=== PATIENT | female | born 1975 | race Caucasian/White ===

== ENCOUNTER → 2018-01-07 | Day surgery (SDC) | payer BC ==
--- NOTE | 2018-01-07 19:44 | OP ---
DATE OF OPERATION: 01/07/2018 PREOPERATIVE DIAGNOSIS: Suspicious right upper outer quadrant breast mass, 10 to 11 o'clock, 4 cm from the nipple, and suspicious right axillary node. POSTOPERATIVE DIAGNOSIS: Suspicious right upper outer quadrant breast mass, 10 to 11 o'clock, 4 cm from the nipple, and suspicious right axillary node. PROCEDURE: Right axillary node ultrasound guided core biopsy with clip placement and right breast ultrasound guided core biopsy with clip placement. ANESTHESIA: Local. ATTENDING SURGEON: Dayo Sanchez M.D. ESTIMATED BLOOD LOSS: Minimal. COMPLICATIONS: None. DESCRIPTION OF PROCEDURE: Patient was made aware of risks and benefits of the procedure and consented. The right axillary node was approached first. Under sterile conditions, with 1% lidocaine for local anesthesia, a small sapna was made in the skin. Using a 13-gauge suction biopsy device, the inferior approach under ultrasound guidance, 2 cores were obtained and submitted to pathology. Likewise under ultrasound guidance, a Hydromark clip was placed into the biopsied lymph node. Steri-Strip and a sterile bandage were applied. The right breast was then approached with new sterile setup and a core system. Under sterile conditions, with 1% lidocaine for local anesthesia, a small sapna was made in the skin. Using a 13-gauge suction biopsy device, via lateral approach under ultrasound guidance, multiple cores were obtained and submitted to pathology. Likewise under ultrasound guidance, a U-shaped clip was placed into the biopsy region Steri-Strip, sterile dressing, and manual compression were then applied. Patient tolerated the procedure well. Will contact her with results. DAYO SANCHEZ M.D. [id number]
--- NOTE | 2018-01-12 14:07 | PATH ---
Surgical Pathology Report Patient Name: MARTINEZ CONNELL [facility]. Rec. #: [id number] /Age/Gender: 1975 (Age: 42) / F Account: [id number] Location: [facility] RADIOLOG[facility] U Taken: 01/07/2018 Received: 01/07/2018 Reported: 01/12/2018 Physicians: Dayo Sanchez M.D. Specimen(s) Received A: RIGHT AXILLARY NODE CORE BX B: RIGHT BREAST 10-11:00 4 CM FN CORE BIOPSY Clinical History Palpable mass Ultrasound findings: Highly suspicious/malignant Final Diagnosis A. lymph node, right axilla, core biopsy: Scant benign lymph node tissue. (See note) Note: Cytokeratin (AE1/3) immunostain performed at [place], [place] ([id number]) is negative; this finding supports the diagnosis. B. breast, right, 10-11:00 N-4, core biopsy: INVASIVE Ductal carcinoma, poorly differentiated (with squamoid features), measuring at least 1.0 cm in greatest dimension in this material. (See note) Ductal carcinoma in situ (DCIS), predominantly necrotic with associated calcifications (" burnt-out" DCIS with rare intact high-grade nuclei). Note: Immunohistochemical studies performed at [place], [place] ([id number]) show the following results: The carcinoma is positive for CK-HMW with rare cells positive for p40. These findings support the diagnosis. See also concurrent right nipple biopsy ([id number]). Case discussed with on 01/12/18. Results of ER, DE, Her2 & Ki67 studies performed on block B at [place], [place] ([id number]) are as follows: ER (clone [id number] mouse monoclonal antibody by [employer]): 0 % nuclear staining (Negative). DE (clone16 mouse monoclonal antibody by [employer]): 0 % nuclear staining (Negative). Her2 IHC (EP3 from [employer], formerly known as [id number], using [employer] Polymer Refine detection kit): 3+ (Positive). Ki-67: 30-40% (High proliferative index). Positive and negative controls (internal if applicable) show appropriate results. Formalin fixation and cold ischemic times are within current ASCO/CAP recommendations for ER, DE and Her2 testing. Electronically Signed Cathi Zavala M.D. Gross Description A. Received in formalin labeled "right axilla," is a 2.4 x 2.3 x 0.3 cm aggregate of multiple washburn-yellow, irregular to cylindrical portions of fibroadipose tissue admixed with blood clot. The formalin is filtered and the specimen is entirely submitted in one cassette. B. Received in formalin labeled "right breast 10-11:00, 4 cm fn," are 8 washburn-yellow, cylindrical portions of fibroadipose tissue ranging from 0.3-1.6 cm in length and averaging 0.1 cm in diameter. The specimens are submitted in toto in one cassette. Time to formalin fixation: < 1 minute Total formalin fixation time: Approximately 25 hours. 01/08/2018 [facility]01/08/2018
== END | disposition home or self-care (01) ==
LOC: FRADUS-SUR 16:45
PROVIDERS: ATTEND Surgery Surgical Oncology
PROC: 0HBT3ZX Excision of Right Breast, Percutaneous Approach, Diagnostic (ICD-10-PCS; principal; 2018-01-07)
PROC: 07B53ZX Excision of Right Axillary Lymphatic, Percutaneous Approach, Diagnostic (ICD-10-PCS; 2018-01-07)
PROC: BH47ZZZ Ultrasonography of Upper Extremity (ICD-10-PCS; 2018-01-07)
DX: C50.411 Malignant neoplasm of upper-outer quadrant of right female breast (principal); N63.11 Unspecified lump in the right breast, upper outer quadrant; R59.9 Enlarged lymph nodes, unspecified
CPT/HCPCS: 19083; 19084; 38505; 76942; 87899; 88305-TC; A4648

== ENCOUNTER 2018-04-19 15:53 | Emergency (ER) | payer BC ==
[2018-04-19 16:20] VITALS: BP 120/75; TEMP 98.5; BMI 17.2
[2018-04-19] MEDS ORDERED: ONDANSETRON 4 MG/2 ML VIAL ONE (16:46)
[2018-04-19] MEDS ORDERED: HYDROmorphone HCL CARPU-JECT 1 MG/1 ML DISP.SYRIN ONE (16:46)
[2018-04-19] MEDS ORDERED: ONDANSETRON 4 MG/2 ML VIAL IVPUSH ONE (16:47)
[2018-04-19] MEDS ORDERED: SODIUM CHLORIDE 0.9% 1000 ML INFUS.BAG IV ONE (16:47)
[2018-04-19] MEDS ORDERED: HYDROmorphone HCL CARPU-JECT 1 MG/1 ML DISP.SYRIN IVPB ONE (16:48)
[2018-04-19 16:52] LABS: HCG,QUALITATIVE URINE Negative
[2018-04-19 16:56] LABS: PH,URINE 5.5 (4.5-8); URINE APPEARANCE Clear; URINE BILIRUBIN 1+ (NEGATIVE); URINE COLOR Yellow; URINE GLUCOSE (UA) Trace (NEGATIVE); URINE KETONE Trace (NEGATIVE); URINE LEUK ESTERASE Negative (NEGATIVE); URINE NITRITE Negative (NEGATIVE); URINE UROBILINOGEN 0.2 (0.2-1.0)
[2018-04-19 16:57] LABS: URINE PROTEIN 1+ (NEGATIVE)
[2018-04-19 17:04] LABS: HEMATOCRIT 30.7 % (32.4-45.2); HEMOGLOBIN 10.2 GM/dl (10.7-15.3); WHITE BLOOD COUNT 7.3 K/mm3 (4.0-10.8)
[2018-04-19 17:08] LABS: BASO % 0.5 % (0-2.0); LYMPH % 26.9 % (8-40); MCH 30.9 pg (25.7-33.7); MCHC 33.2 g/dl (32.0-36.0); MEAN CELL VOLUME 93.1 fl (80-96); MONO % 6.2 % (3.8-10.2); NEUT % 66.4 % (42.8-82.8); PLATELET COUNT 153 K/MM3 (134-434); RDW 16.8 % (11.6-15.6)
[2018-04-19 17:09] LABS: ALBUMIN 4.3 g/dl (3.5-5.0); ALK PHOS 92 U/L (32-92); ANION GAP 9 (8-16); BILIRUBIN,TOTAL 0.6 mg/dl (0.2-1.0); BLOOD UREA NITROGEN 12 mg/dl (7-18); CALCIUM 9.2 mg/dl (8.4-10.2); CHLORIDE 106 mmol/L (98-107); CO2 23 mmol/L (22-28); CREATININE 0.9 mg/dl (0.6-1.3); GLUCOSE,RANDOM 114 mg/dl (74-106); POTASSIUM 3.6 mmol/L (3.5-5.1); SGOT/AST 19 U/L (10-42); SGPT/ALT 16 U/L (10-40); SODIUM 138 mmol/L (136-145); TOT PROT 7.2 g/dl (6.4-8.3)
--- NOTE | 2018-04-19 17:10 | PDOC ---
History of Present Illness - General Chief Complaint: Diarrhea Stated Complaint: DIARRHEA, NAUSEA, JOINT PAINS History Source: Patient Exam Limitations: No Limitations - History of Present Illness Initial Comments: 04/19/18 17:07 42 all female history of breast cancer currently undergoing chemotherapy last session was 10 days ago here today for 3 days of nausea vomiting and diarrhea. Patient states she threw up 2 times however has had 10 loose watery nonbloody stools. Complaining of generalized myalgia and body aches. Symptoms are similar to what she usually experiences in the few days immediately following chemotherapy. However she has not had chemotherapy on the last week denies any fevers or chills no chest pain or shortness of breath no abdominal pain no other complaints she follows with oncologist Dr. Nancy Montoya Past History - Past Medical History Allergies/Adverse Reactions: Allergies Allergy/AdvReac Type Severity Reaction Status Date / Time levofloxacin [From Levaquin] Allergy Verified 04/19/18 15:56 Home Medications: Ambulatory Orders Carboplatin mg IV ASDIR 04/19/18 Ondansetron [Ondansetron Odt] 8 mg PO ASDIR PRN 04/19/18 Paclitaxel [Taxol] mg IV ASDIR 04/19/18 Pegfilgrastim [Neulasta] 6 mg SQ ASDIR 04/19/18 Pertuzumab [Perjeta] mg IV ASDIR 04/19/18 Trastuzumab [Herceptin -] mg IV ASDIR 04/19/18 Cancer: Yes (BREAST ON CHEMO) COPD: No - Suicide/Smoking/Psychosocial Hx Smoking History: Current some day smoker Have you smoked in the past 12 months: Yes Number of Cigarettes Smoked Daily: 1 Information on smoking cessation initiated: Yes 'Breaking Loose' booklet given: 04/19/18 Hx Alcohol Use: No Review of Systems - Review of Systems Constitutional: No: Diaphoresis, Fever HEENTM: No: Blurred Vision Respiratory: No: Cough, Orthopnea, Shortness of Breath Cardiac (ROS): No: Chest Pain ABD/GI: Yes: Diarrhea, Nausea, Vomiting : No: Burning, Dysuria Neurological: Yes: Weakness. No: Numbness, Paresthesia Hematologic/Lymphatic: Yes: Other All Other Systems: Reviewed and Negative *Physical Exam - Vital Signs Last Vital Signs Temp Pulse Resp BP Pulse Ox 98.5 F 107 H 20 120/75 99 04/19/18 15:53 04/19/18 15:53 04/19/18 15:53 04/19/18 15:53 04/19/18 15:53 - Physical Exam General Appearance: Yes: Appropriately Dressed Respiratory/Chest: positive: Lungs Clear, Normal Breath Sounds Cardiovascular: positive: Regular Rhythm, Regular Rate, S1, S2 Gastrointestinal/Abdominal: positive: Normal Bowel Sounds, Flat, Soft. negative : Tender Musculoskeletal: positive: Normal Inspection. negative: CVA Tenderness, CVA Tenderness (R) Extremity: positive: Normal Capillary Refill, Normal Inspection, Normal Range of Motion Integumentary: positive: Normal Color, Dry, Warm Neurologic: positive: Fully Oriented, Alert, Normal Mood/Affect ED Treatment Course - LABORATORY CBC & Chemistry Diagram: 04/19/18 16:40 04/19/18 16:40 - ADDITIONAL ORDERS Additional order review: Laboratory Results 04/19/18 16:40 Urine Color Yellow Urine Appearance Clear Urine pH 5.5 Ur Specific [place] 1.025 Urine Protein 1+ H Urine Glucose (UA) Trace Urine Ketones Trace Urine Blood Negative Urine Nitrite Negative Urine Bilirubin 1+ H Urine Urobilinogen 0.2 Ur Leukocyte Esterase Negative Urine HCG, Qual Negative - Medications Given in the ED: ED Medications Discontinued Medications Generic Name Dose Route Start Last Admin Trade Name Freq PRN Reason Stop Dose Admin Hydromorphone HCl 1 mg 04/19/18 16:48 04/19/18 16:53 Dilaudid Injection - IVPB 04/19/18 16:49 1 mg ONCE ONE Administration Ondansetron HCl 4 mg 04/19/18 16:47 04/19/18 16:50 Zofran Injection IVPUSH 04/19/18 16:48 4 mg ONCE ONE Administration Sodium Chloride 1,000 ml 04/19/18 16:47 04/19/18 16:52 Normal Saline - IV 04/19/18 16:48 1,000 ml ONCE ONE Administration Medical Decision Making - Medical Decision Making 04/19/18 17:09 History of breast CA undergoing chemotherapy he with nausea vomiting diarrhea and dry mucous membranes concerns for dehydration. Differential includes a left- sided abnormality, dehydration, renal failure, hypomagnesemia pancreatitis patient has a relatively nontender abdominal exam. We will order a CBC CMP and magnesium IV hydration and antiemetics will discuss with patient's is reassess following improved will discharge home pending laboratory evaluation 04/19/18 18:40 Patient feeling improved and tolerating by mouth labs unremarkable. We will updated patient's oncologist Dr. Ruth jimenez at [phone]. Call placed awaiting callback *DC/Admit/Observation/Transfer Diagnosis at time of Disposition: Gastroenteritis - Discharge Dispostion Disposition: HOME Condition at time of disposition: Improved - Referrals - Patient Instructions Printed Discharge Instructions: Coping With the Side Effects of Chemotherapy Additional Instructions: Your labs are normal today. Return for any recurrent vomiting fever chills or any concerns. Follow-up with Dr. Ruth jimenez tomorrow as scheduled - Post Discharge Activity
[2018-04-19 17:59] LABS: LIPASE 280 U/L (73-393)
[2018-04-19 18:18] VITALS: PULSE 91
[2018-04-19 18:48] LABS: URINE BACTERIA FEW /hpf (NEGATIVE); URINE RBC 0-2 /hpf (0-3); URINE WBC 0-1 (0-5)
== END 2018-04-19 18:55 | disposition home or self-care (01) ==
LOC: FER 15:53
PROC: 3E0337Z Introduction of Electrolytic and Water Balance Substance into Peripheral Vein, Percutaneous Approach (ICD-10-PCS; principal; 2018-04-19)
PROC: 3E033NZ Introduction of Analgesics, Hypnotics, Sedatives into Peripheral Vein, Percutaneous Approach (ICD-10-PCS; 2018-04-19)
PROC: 3E033GC Introduction of Other Therapeutic Substance into Peripheral Vein, Percutaneous Approach (ICD-10-PCS; 2018-04-19)
DX: K52.9 Noninfective gastroenteritis and colitis, unspecified (principal); Z92.21 Personal history of antineoplastic chemotherapy; Z85.3 Personal history of malignant neoplasm of breast; F17.210 Nicotine dependence, cigarettes, uncomplicated
CPT/HCPCS: 36415; 80053; 81003; 81015; 83690; 83735; 84703; 85025; 99284-25; J7030